=== PATIENT | female | born 1995 | race African-American/Black ===

== ENCOUNTER 2018-10-25 20:42 | Emergency (ER) | payer BC, OTHER ==
[~2018-10-25] VITALS: Ht 170.2 cm; Wt 104.3 kg
[~2018-10-25 20:42] MED LIST: FERR325T58 PO; NAPR-683 PO; OXYC1TAB15 PO
[2018-10-25 21:16] VITALS: BP 138/65
[2018-10-25] MEDS ORDERED: BENZONATATE 100 MG CAPSULE. PO ONE (22:00)
[2018-10-25] MEDS ORDERED: predniSONE 20 MG TABLET PO ONE (22:00)
[2018-10-25] MEDS ORDERED: IPRATRPIUM/ALBUTEROL 0.5/2.5MG 3 ML NEBU. NEB ONE (22:00)
--- NOTE | 2018-10-25 22:11 | RAD ---
PA and lateral views of the chest. Comparison: None. Indication: Cough and short of breath Findings: Normal lung volume. No focal airspace disease. Normal pulmonary vasculature. No pleural effusion. No pneumothorax. The cardiomediastinal silhouette is normal in appearance. The great vessels are normal. No acute osseous abnormality. Impression: 1. No acute cardiopulmonary process. Electronically signed by: Carter Birmingham MD (10/25/2018 10:08 PM) [facility]
[2018-10-25] MEDS ORDERED: BENZ100C PO (22:14)
[2018-10-25] MEDS ORDERED: PRED50TA PO (22:14)
[2018-10-25] MEDS ORDERED: VENTOLIN HFA18 GM INH (22:14)
--- NOTE | 2018-10-25 22:14 | PHYS DOC ---
Past Medical History Past Medical History: No Pertinent History (IGOR SUTTON APRN) Past Surgical History: , Other Additional Past Surgical Histo: hernia repair (IGOR SUTTON APRN) Alcohol Use: Occasionally Drug Use: None (IGOR SUTTON APRN) Adult General Chief Complaint Chief Complaint: COUGH HPI HPI Patient is a 23 year old female with no significant medical history who presents to the ED today complaining of a dry cough for 1 week. Patient denies any fever. (IGOR SUTTON APRN) Review of Systems Review of Systems Constitutional: Denies fever or chills [] Eyes: Denies change in visual acuity, redness, or eye pain [] HENT: Denies nasal congestion or sore throat [] Respiratory: Reports cough, denies shortness of breath [] Cardiovascular: No additional information not addressed in HPI [] GI: Denies abdominal pain, nausea, vomiting, bloody stools or diarrhea [] : Denies dysuria or hematuria [] Musculoskeletal: Denies back pain or joint pain [] Integument: Denies rash or skin lesions [] Neurologic: Denies headache, focal weakness or sensory changes [] All other systems were reviewed and found to be within normal limits, except as documented in this note. (IGOR SUTTON APRN) Current Medications Current Medications Current Medications Medications (Trade) Dose Ordered Sig/Lisandra Start Time Stop Time Status Last Admin Dose Admin Albuterol/ Ipratropium (Duoneb) 3 ml 1X ONCE 10/25/18 22:00 10/25/18 22:01 DC 10/25/18 22:01 3 ML Benzonatate (Tessalon Perle) 100 mg 1X ONCE 10/25/18 22:00 10/25/18 22:01 DC 10/25/18 21:34 100 MG Prednisone (Prednisone) 50 mg 1X ONCE 10/25/18 22:00 10/25/18 22:01 DC 10/25/18 21:34 50 MG (MAR SÁNCHEZ DO) Allergies Allergies Allergies Coded Allergies Type Severity Reaction Last Updated Verified No Known Drug Allergies 08/27/13 No (MAR SÁNCHEZ DO) Physical Exam Physical Exam Constitutional: Well developed, well nourished, no acute distress, non-toxic appearance. [] HENT: Normocephalic, atraumatic, bilateral external ears normal, oropharynx moist, no oral exudates, nose normal. [] Eyes: PERRLA, EOMI, conjunctiva normal, no discharge. [] Neck: Normal range of motion, no tenderness, supple, no stridor. [] Cardiovascular:Heart rate regular rhythm, no murmur [] Lungs & Thorax: Bilateral breath sounds clear to auscultation [] Abdomen: Bowel sounds normal, soft, no tenderness, no masses, no pulsatile masses. [] Skin: Warm, dry, no erythema, no rash. [] Back: No tenderness, no CVA tenderness. [] Extremities: No tenderness, no cyanosis, no clubbing, ROM intact, no edema. [] Neurologic: Alert and oriented X 3, normal motor function, normal sensory function, no focal deficits noted. [] Psychologic: Affect normal, judgement normal, mood normal. [] (IGOR SUTTON APRN) Current Patient Data Vital Signs Vital Signs Date Time Temp Pulse Resp B/P (MAP) Pulse Ox O2 Delivery O2 Flow Rate FiO2 10/25/18 22:02 97 Room Air 10/25/18 21:16 98.2 85 12 138/65 (89) 98.2 (MAR SÁNCHEZ DO) EKG EKG [] (IGOR SUTTON APRN) Radiology/Procedures Radiology/Procedures [] (IGOR SUTTON APRN) Radiology/Procedures PROCEDURE: CHEST PA & LATERAL PA and lateral views of the chest. Comparison: None. Indication: Cough and short of breath Findings: Normal lung volume. No focal airspace disease. Normal pulmonary vasculature. No pleural effusion. No pneumothorax. The cardiomediastinal silhouette is normal in appearance. The great vessels are normal. No acute osseous abnormality. Impression: 1. No acute cardiopulmonary process. Electronically signed by: Carter Birmingham MD (10/25/2018 10:08 PM) [facility] (MAR SÁNCHEZ DO) Course & Med Decision Making Course & Med Decision Making Pertinent Labs and Imaging studies reviewed. (See chart for details) This is a 23-year-old female patient presenting to the ED today with with a cough for 1 week. Chest x-ray interpreted by Dr. Sánchez is negative for any acute findings, symptoms are likely viral. Patient was given a DuoNeb treatment , prednisone, Tessalon Perles. Lungs are clear since arrival to the ED. Will be discharged with prednisone, albuterol inhaler and Tessalon Perles. OTC remedies also recommended. Follow-up with PCP in 1-2 weeks. (IGOR SUTTON APRN) Goldy Disclaimer Dragon Disclaimer This electronic medical record was generated, in whole or in part, using a voice recognition dictation system. (IGOR SUTTON APRN) Departure Departure Impression: Primary Impression: Acute bronchitis Disposition: HOME, SELF-CARE Condition: STABLE Referrals: NO PCP (PCP) follow up in 1 week with your doctor Patient Instructions: Acute Bronchitis Additional Instructions: You were evaluated in the emergency room for symptoms suspicious of viral bronchitis, your chest x-ray was negative for any acute findings. Use the prescribed medications as ordered. Follow-up with your doctor in 1-2 weeks. Scripts Benzonatate (TESSALON PERLE) 100 Mg Capsule 1 CAP PO TID, #30 CAP Prov: IGOR SUTTON APRN 10/25/18 Albuterol Sulfate (VENTOLIN HFA INHALER) 18 Gm Hfa.aer.ad 2 PUFF INH Q4HRS for FOR ASTHMA, #1 INHALER 0 Refills Prov: IGOR SUTTON APRN 10/25/18 Prednisone (PREDNISONE) 50 Mg Tablet 1 TAB PO DAILY, #5 TAB Prov: IGOR SUTTON APRN 10/25/18 Attending Signature Attending Signature I have reviewed the PA/PERSONNEL PSYCHOLOGIST's note and plan of care. I was available for consultation as needed during the patient's visit in the emergency department. I agree with the clinical impression, plan, and disposition. (MAR SÁNCHEZ DO) Problem Qualifiers Primary Impression: Acute bronchitis Bronchitis organism: unspecified organism Qualified Codes: J20.9 - Acute bronchitis, unspecified IGOR SUTTON APRN Oct 25, 2018 22:14 MAR SÁNCHEZ DO Oct 26, 2018 04:39
== END 2018-10-25 22:34 | disposition home or self-care (01) ==
LOC: ER 20:42
DX: J20.9 Acute bronchitis, unspecified (principal); Z98.890 Other specified postprocedural states
CPT/HCPCS: 71046; 94640; 99283; J7512; J7620